=== PATIENT | female | born 1970 | race Caucasian/White ===

== ENCOUNTER 2018-08-31 20:07 | Emergency (ER) | payer MEDICARE, MEDICAID ==
[~2018-08-31] VITALS: Ht 167.6 cm; Wt 127.0 kg
[2018-08-31] MEDS ORDERED: PERCOCET 10-321 EACH PO (20:17)
[2018-08-31] MEDS ORDERED: OXYCONTIN20 M1 PO (20:17)
[2018-08-31] MEDS ORDERED: SYNTHROID150 MCG PO (20:17)
[2018-08-31] MEDS ORDERED: ANORO ELLIPTA1 EACH INH (20:18)
[2018-08-31] MEDS ORDERED: FOLBIC RF TABL1 EACH PO (20:18)
[2018-08-31 22:16] VITALS: BP 133/88
== END 2018-08-31 22:17 | disposition home or self-care (01) ==
LOC: M.ERS 20:07
DX: M25.422 Effusion, left elbow (principal); E03.9 Hypothyroidism, unspecified; F17.200 Nicotine dependence, unspecified, uncomplicated; Z88.1 Allergy status to other antibiotic agents; Z88.8 Allergy status to other drugs, medicaments and biological substances; Z86.718 Personal history of other venous thrombosis and embolism

== ENCOUNTER 2020-08-09 22:17 | Emergency (ER) | payer MEDICARE, MEDICAID ==
[~2020-08-09] VITALS: Ht 167.6 cm; Wt 134.3 kg
[~2020-08-09 22:17] MED LIST: ANORO ELLIPTA1 EACH INH; FOLBIC RF TABL1 EACH PO; OXYCONTIN20 M1 PO; PERCOCET 10-321 EACH PO; SYNTHROID150 MCG PO
[2020-08-09] MEDS ORDERED: KLONOPIN1 MG PO (22:38)
[2020-08-09] MEDS ORDERED: LYRICA25 MG PO (22:38)
[2020-08-09] MEDS ORDERED: ELIQUIS5 MG PO (22:39)
[2020-08-10 00:39] LABS: URINE BILIRUBIN NEGATIVE (Negative); URINE BLOOD 1+ (Negative); URINE CLARITY CLEAR; URINE COLOR YELLOW; URINE GLUCOSE-RANDOM NEGATIVE (Negative); URINE KETONES NEGATIVE (Negative); URINE LEUKOCYTES-REFLEX NEGATIVE (Negative); URINE NITRITE-REFLEX NEGATIVE (Negative); URINE PROTEIN NEGATIVE (Negative); URINE SPECIFIC GRAVITY 1.015 (1.005-1.030); URINE UROBILINOGEN 0.2 E.U./dl (0.2-1.0)
[2020-08-10 00:41] LABS: HEMATOCRIT 41.3 % (37.0-47.0); HEMOGLOBIN 13.9 gm/dL (12.0-15.0); MCH 33.9 pg (26.0-34.0); MCHC 33.7 g/dL (28.0-37.0); MCV 100.4 fL (80.0-100.0); MPV 9.1 fl. (7.2-11.1); NUCLEATED RBCS 0 /100WBC; PLATELET COUNT* 212 thou/uL (150-400); RBC 4.11 mil/uL (4.20-5.00); RDW-CV 14.2 % (10.5-14.5); WBC 10.7 thou/uL (4.0-11.0)
[2020-08-10 00:51] LABS: CALCIUM 8.5 mg/dL (8.5-10.1); CREATININE 1.2 mg/dL (0.6-1.3); POTASSIUM 3.8 mmol/L (3.5-5.1)
[2020-08-10 01:01] LABS: ALBUMIN 3.2 g/dL (3.4-5.0); TOTAL BILIRUBIN 0.2 mg/dL (<0.1-1.0); TOTAL PROTEIN 7.2 g/dL (6.4-8.2)
[2020-08-10] MEDS ORDERED: GAVILAX17 GM PO (01:36)
[2020-08-10] MEDS ORDERED: COLACE100 MG PO (01:36)
[2020-08-10 01:59] VITALS: BP 150/84
[2020-08-10 02:23] LABS: ABSOLUTE EOSINOPHILS 0.4 thou/uL (0.0-0.7); ABSOLUTE LYMPHOCYTES 3.5 thou/uL (0.8-5.3); ABSOLUTE MONOCYTES 0.6 thou/uL (0.0-1.2); ABSOLUTE NEUTROPHILS 6.1 thou/uL (1.6-8.1); LARGE PLATELETS OCCASIONAL; PLATELET ESTIMATE ADEQUATE
[2020-08-10 02:27] LABS: SQUAMOUS >10 Many /LPF (0-3)
[2020-08-10 02:28] LABS: CASTS None Seen /LPF (None Seen); CRYSTALS None Seen /LPF (None Seen); URINE RBC 3-10 Few /HPF (0-2); URINE WBC-REFLEX 0-5 Rare /HPF (0-5)
== END 2020-08-10 01:59 | disposition home or self-care (01) ==
LOC: M.ERS 22:17
PROVIDERS: Personal Emergency Response Attendant
DX: K59.01 Slow transit constipation (principal); M19.90 Unspecified osteoarthritis, unspecified site; E03.9 Hypothyroidism, unspecified; G89.29 Other chronic pain; L40.9 Psoriasis, unspecified; Z88.1 Allergy status to other antibiotic agents; Z86.718 Personal history of other venous thrombosis and embolism; Z86.711 Personal history of pulmonary embolism

== ENCOUNTER 2021-01-13 15:33 | Emergency (ER) | payer MEDICARE, MEDICAID ==
[~2021-01-13] VITALS: Ht 167.6 cm; Wt 133.8 kg
[~2021-01-13 15:33] MED LIST changes: +COLACE100 MG PO; +ELIQUIS5 MG PO; +GAVILAX17 GM PO; +KLONOPIN1 MG PO; +LYRICA25 MG PO
[2021-01-13 16:12] VITALS: BP 145/91
[2021-01-13] MEDS ORDERED: OMEPRAZOLE20 M2 PO (16:15)
[2021-01-13] MEDS ORDERED: VITAMIN D350 MC3 PO (16:15)
== END 2021-01-13 20:29 | disposition left against medical advice (07) ==
LOC: M.ERS 15:33
DX: M25.562 Pain in left knee (principal); Z53.21 Procedure and treatment not carried out due to patient leaving prior to being seen by health care provider